=== PATIENT | male | born 1940 | race Caucasian/White ===

== ENCOUNTER → 2018-06-05 | Outpatient (CLI) | payer MEDICARE ==
--- NOTE | 2018-06-05 13:30 | FL ---
Modified barium swallow. HISTORY: Dysphagia. Modified barium swallow was performed with the department of speech pathology. The patient was prese nted with various consistencies of barium. There is no evidence for aspiration or penetration. Full report is to follow from the department of speech pathology. Impression: Normal study.
== END | disposition home or self-care (01) ==
LOC: RADFLMAIN 10:57
PROVIDERS: ATTEND Internal Medicine
DX: R13.12 Dysphagia, oropharyngeal phase (principal)
CPT/HCPCS: 74230

== ENCOUNTER → 2019-02-08 | Outpatient (CLI) | payer MEDICARE ==
--- NOTE | 2019-02-08 17:57 | ECHOF ---
Referral Reason:I35.0 Nonrheumatic aortic (valve) stenosis MEASUREMENTS -------- HEIGHT: 167.6 cm WEIGHT: 104.3 kg BP: 139/60 RVIDd: 3.1 cm (< 3.3) IVSd: 1.4 cm (0.6 - 1.1) LVIDd: 5.0 cm (3.9 - 5.3) LVPWd: 1.3 cm (0.6 - 1.1) IVSs: 1.9 cm LVIDs: 4.1 cm LVPWs: 1.6 cm LA Diam: 4.1 cm (2.7 - 3.8) LAESV Index (A-L): 22.54 ml/m Ao Diam: 4.1 cm (2.0 - 3.7) AV Cusp: 1.4 cm (1.5 - 2.6) MV EXCURSION: 11.453 mm (> 18.000) MV EF SLOPE: 17 mm/s (70 - 150) EPSS: 1.5 cm MV E Marshall: 0.55 m/s MV DecT: 377 ms MV A Marshall: 1.26 m/s MV E/A Ratio: 0.43 AV maxP.08 mmHg AV meanP.49 mmHg RAP: 5.00 mmHg RVSP: 33.71 mmHg FINDINGS -------- Sinus rhythm. This was a technically difficult study with suboptimal views. The left ventricular size is normal. There is moderate concentric left ventricular hypertrophy. O verall left ventricular systolic function is normal with, an EF between 55 - 60 %. The right ventricle is normal in size. Normal LA size by volume 22+/-6 ml/m2. The right atrial size is normal. There is mild to moderate aortic valve sclerosis. There is mild aortic regurgitation. There is mi ld aortic stenosis present. Peak/mean gradient across the Aortic Valve is 29.08mmHg / 16.49mmHg. The mitral valve is normal. Mild mitral regurgitation is present. Mild tricuspid regurgitation present. There is no evidence of pulmonary hypertension. The right v entricular systolic pressure, as measured by Doppler, is 33.71mmHg. The pulmonic valve was not well visualized. There is no pulmonic regurgitation present. The aortic root is dilated measuring 4.1cm. There is no pericardial effusion. CONCLUSIONS -------- 1. Sinus rhythm. 2. This was a technically difficult study with suboptimal views. 3. The left ventricular size is normal. 4. There is moderate concentric left ventricular hypertrophy. 5. Overall left ventricular systolic function is normal with, an EF between 55 - 60 %. 6. Normal LA size by volume 22+/-6 ml/m2. 7. There is mild to moderate aortic valve sclerosis. 8. There is mild aortic regurgitation. 9. There is mild aortic stenosis present. 10. Peak/mean gradient across the Aortic Valve is 29.08mmHg / 16.49mmHg. 11. The mitral valve is normal. 12. Mild mitral regurgitation is present. 13. Mild tricuspid regurgitation present. 14. There is no evidence of pulmonary hypertension. 15. The pulmonic valve was not well visualized. 16. The aortic root is dilated measuring 4.1cm. 17. There is no pericardial effusion. INSURANCE ADVISOR: Vinita Trujillo RDCS
== END | disposition home or self-care (01) ==
LOC: RADECHMAIN 13:07
PROVIDERS: ATTEND Internal Medicine
DX: I08.3 Combined rheumatic disorders of mitral, aortic and tricuspid valves (principal)
CPT/HCPCS: C8929; Q9950; 93306

== ENCOUNTER → 2019-02-19 | Outpatient (CLI) | payer MEDICARE ==
--- NOTE | 2019-02-19 15:59 | US ---
EXAMINATION TYPE: US venous doppler duplex LE RT DATE OF EXAM: 02/19/2019 3:44 PM COMPARISON: NONE CLINICAL HISTORY: M79.604, M79.661 PAIN IN RT LOWER LEG. Pt states right leg pain SIDE PERFORMED: Right TECHNIQUE: The lower extremity deep venous system is examined utilizing real time linear array sonog chrissie with graded compression, doppler sonography and color-flow sonography. VESSELS IMAGED: External Iliac Vein (EIV) Common Femoral Vein Deep Femoral Vein Greater Saphenous Vein * Femoral Vein Popliteal Vein Small Saphenous Vein * Proximal Calf Veins (* superficial vessels) Right Leg: Positive for DVT, Right EIV to proximal calf veins IMPRESSION: 1. Findings compatible extensive DVT right lower extremity. Report called to referring clinician.
== END ==
LOC: RADUSWWP 15:26
PROVIDERS: ATTEND Internal Medicine
DX: M79.604 Pain in right leg (principal); M79.661 Pain in right lower leg

== ENCOUNTER 2021-06-04 10:10 | Day surgery (SDC) | payer MEDICARE ==
[2021-06-01 15:03] VITALS: BMI 38.2
[~2021-06-04 10:10] MED LIST: ACETAMINOPHEN TAB 500 MG TAB PO PRN; DEXAMETHASONE SOD PHOSPHATE 4 MG/ML 1 ML VIAL IV ONE; HEPARIN SODIUM,PORCINE/PF 5,000 UNIT/0.5 ML SYRINGE SQ PRN; HYDROmorphone 0.5 MG/0.5 ML SYRINGE IVP PRN; LACTATED RINGERS 1,000 ML IV SCH; MIDAZOLAM 2 MG/2 ML VIAL IV PRN; ONDANSETRON 4 MG/2 ML VIAL IVP ONE; Pre Op ABX Message 1 EACH MISC MISCELLANE ONE
[2021-06-04] MEDS ORDERED: LIDOCAINE 1% (10MG/ML) FOR IV START INTRADERMA ONE (11:00)
[2021-06-04] MEDS ORDERED: KETAMINE 10 MG/ML 20 ML VIAL ONE (12:12)
[2021-06-04] MEDS ORDERED: PROPOFOL 10 MG/ML 20 ML VIAL IV ONE (12:12)
[2021-06-04] MEDS ORDERED: fentaNYL (PF) 50 MCG/ML 2 ML AMP ONE (12:12)
[2021-06-04] MEDS ORDERED: MIDAZOLAM 2 MG/2 ML VIAL ONE (12:12)
[2021-06-04] MEDS ORDERED: SODIUM CHLORIDE 0.9% 100 ML with ceFAZolin 2,000 MG IV ONE ×2 (12:33)
[2021-06-04] MEDS ORDERED: LIDOCAINE 2%-EPI 1:100,000 20 ML VIAL SQ ONE ×2 (12:33)
[2021-06-04] MEDS ORDERED: NALOXONE 0.4 MG/ML 1 ML VIAL IV PRN (12:58)
--- NOTE | 2021-06-04 13:01 | P.OP ---
Date of Procedure: 06/04/21 Procedure(s) Performed: PREOPERATIVE DIAGNOSIS: Left chest wall mass POSTOPERATIVE DIAGNOSIS: Left chest wall lipoma PROCEDURE: Excision left chest wall lipoma with layered closure SURGEON: aMynor EBL: 5 mL ANESTHESIA: Sedation plus local COMPLICATIONS: None OPERATIVE PROCEDURE: Patient place never table in the supine position. Patient sedated per anesthesia. Left lower chest wall prepped and draped sterilely. Palpable mass identified. Skin infiltrated with 2% lidocaine. Skin incision made horizontally. Subcutaneous tissues divided using electrocautery. Lipomatous mass excised with adjacent lipomatous masses well. Largest lipoma 6 x 4 cm. Other smaller lipomas measuring 2-3 cm also excised. These were sent to pathology. Subcutaneous tissues closed in layered fashion using interrupted 3-0 Vicryl sutures. Skin closed using a running 4-0 Monocryl suture. Skin glue applied. DISPOSITION: Stable to recovery room
[2021-06-04 13:09] VITALS: TEMP 96.8
[2021-06-04 14:10] VITALS: PULSE 59
[2021-06-04 14:23] VITALS: BP 148/81; RESP 14
== END 2021-06-04 14:42 | disposition home or self-care (01) ==
LOC: OR 10:10
PROVIDERS: ATTEND Surgery
DX: D17.1 Benign lipomatous neoplasm of skin and subcutaneous tissue of trunk (principal); Z86.73 Personal history of transient ischemic attack (TIA), and cerebral infarction without residual deficits; Z79.82 Long term (current) use of aspirin; Z86.718 Personal history of other venous thrombosis and embolism
CPT/HCPCS: 21552; 11406; 88304; J2250; J1100; J2405; J0690; J3010; J2704; J1644

== ENCOUNTER → 2022-02-01 | Outpatient (CLI) | payer MEDICARE ==
--- NOTE | 2022-02-01 15:05 | XR ---
EXAMINATION TYPE: XR lumbar spine 3V DATE OF EXAM: 02/01/2022 Comparison: None Clinical History: 81-year-old male M54.50 low back pain Findings: 5 lumbar type vertebral bodies. Mild/moderate multilevel degenerative disc disease. Atrophic facet arthropathy throughout the lumbar spine especially lower lumbar spine. Degenerative gr stacey 1 retrolisthesis L1-L2 and L2-L3. Trace grade 1 anterolisthesis L5-S1. Vertebral body heights are preserved. Prostatic calcifications throughout the infrarenal abdominal aorta and iliac arteries. Aneurysm infra renal abdominal aorta at 3.4 cm and ectatic common iliac arteries measuring up to 2.0 cm. Impression: 1. Moderate multilevel spondylotic change. More advanced facet arthropathy especially lower lumbar sp ine. Degenerative grade 1 spondylolisthesis L1-L2, L2-L3, and L5-S1. 2. No vertebral compression collapse. 3. Infrarenal AAA at 3.4 cm and mild aneurysm common iliac arteries up to 2.0 cm.
--- NOTE | 2022-02-01 15:08 | XR ---
EXAMINATION TYPE: AP view pelvis and 2 views each hip DATE OF EXAM: 02/01/2022 COMPARISON: NONE HISTORY: 81-year-old male M25.552 TECHNIQUE: A single AP view of the pelvis is obtained. Two views of the both hips are obtained. FINDINGS: Mild axial joint space narrowing at either hip. Tiny os acetabuli superolateral right hip measuring 6 mm. Probable degenerative labral ossification superolateral left hip. Pubic symphysis appears intact . Vascular calcifications in the inguinal regions. No acute fracture, subluxation, or dislocation. Bi lateral anterior and superior femoral head neck junction can deformities. IMPRESSION: 1. Mild degenerative change at either hip likely secondary to chronic CAM-type femoral acetabular imp ingement. Degenerative labral ossification suspected on the left and probably on the right as well. 2. No acute osseous abnormality seen.
== END | disposition home or self-care (01) ==
LOC: RADXRMAIN 10:35
PROVIDERS: ATTEND Internal Medicine
DX: M47.816 Spondylosis without myelopathy or radiculopathy, lumbar region (principal); M43.16 Spondylolisthesis, lumbar region; M16.0 Bilateral primary osteoarthritis of hip
CPT/HCPCS: 72100; 73521

== ENCOUNTER → 2022-05-26 | Outpatient (CLI) | payer MEDICARE ==
--- NOTE | 2022-05-26 08:37 | US ---
EXAMINATION TYPE: US duplex aorta DATE OF EXAM: 05/26/2022 COMPARISON: NONE CLINICAL HISTORY: I71.4 AAA. AAA EXAM MEASUREMENTS: Abdominal Aorta: Proximal: AP= 3.0cm Trans= 3.5cm Mid: AP= 2.2cm Trans=2.4cm Distal: AP= 2.3 Trans=2.6cm Bifurcation: BERNARD AP=1.3cm Trans=1.6cm ANNIE AP=1.4cm Trans=1.3cm Prox Aorta limited due to patient's body habitus and overlying bowel gas. IMPRESSION: No evidence for abdominal aortic aneurysm at this time.
== END | disposition home or self-care (01) ==
LOC: RADUSWWP 06:58
PROVIDERS: ATTEND Internal Medicine
DX: I71.4 Abdominal aortic aneurysm, without rupture (principal)
CPT/HCPCS: 93979

== ENCOUNTER → 2022-05-31 | Outpatient (CLI) | payer MEDICARE ==
--- NOTE | 2022-06-01 08:30 | CA ---
Transthoracic Echo Report Name: Petey Hobson Age: 81 Gender: M : 1940 Exam Date: 05/31/2022 13:54 Exam Location: [facility] Ht (in): 66 Wt (lb): 220 Ordering Physician: Danae Soriano MD Attending/Referring Phys: Rental Sales Associate Flores Garcia RDCS Procedure CPT: Indications: R01.1 cardiac murmur Cardiac Hx: Hx of aortic stenosis. Technical Quality: Fair Contrast 1: Total Dose (mL): Contrast 2: Total Dose (mL): MEASUREMENTS (Male / Female) Normal Values 2D ECHO LV Diastolic Diameter PLAX 4.1 cm 4.2 - 5.9 / 3.9 - 5.3 cm LV Systolic Diameter PLAX 2.9 cm IVS Diastolic Thickness 1.2 cm 0.6 - 1.0 / 0.6 - 0.9 cm LVPW Diastolic Thickness 1.4 cm 0.6 - 1.0 / 0.6 - 0.9 cm LV Relative Wall Thickness 0.6 LVOT Diameter 1.6 cm M-MODE Aortic Root Diameter MM 3.7 cm LA Systolic Diameter MM 4.0 cm LA Ao Ratio MM 1.1 MV E Point Septal Separation 0.5 cm AV Cusp Separation MM 0.8 cm DOPPLER AV Peak Velocity 279.3 cm/s AV Peak Gradient 31.2 mmHg AV Mean Velocity 192.9 cm/s AV Mean Gradient 17.0 mmHg AV Velocity Time Integral 62.3 cm AI Peak Velocity 187.7 cm/s AI Peak Gradient 14.1 mmHg AI Pressure Half Time 524.5 ms LVOT Peak Velocity 145.3 cm/s LVOT Peak Gradient 8.4 mmHg AV Area Cont Eq pk 1.1 cm??? MV Area PHT 3.5 cm??? MR Peak Velocity 115.4 cm/s MR Peak Gradient 5.3 mmHg Mitral E Point Velocity 48.1 cm/s Mitral A Point Velocity 129.7 cm/s Mitral E to A Ratio 0.4 MV Deceleration Time 214.2 ms TR Peak Velocity 193.3 cm/s TR Peak Gradient 15.0 mmHg Right Ventricular Systolic Press 18.7 mmHg FINDINGS Left Ventricle Mildly increased septal wall thickness. Left ventricular ejection fraction is estimated at 50-55 %. Left ventricular cavity size normal. Basal inferior is hypokinetic Right Ventricle The right ventricle is normal in size and function. Right Atrium The right atrium is normal in size. Left Atrium The left atrium is normal in size. Mitral Valve Structurally normal mitral valve without significant stenosis or prolapse. There is trace mitral regurgitation. Aortic Valve Mild aortic stenosis with a peak gradient of 31 mmHg and a mean gradient of 17 mmHg. . There is trace aortic regurgitation. Diffuse thickening of the aortic valve cusps with reduced excursion. Tricuspid Valve Structurally normal tricuspid valve without significant stenosis. Pulmonary artery systolic pressure is normal. Mild tricuspid regurgitation. Pulmonic Valve Structurally normal pulmonic valve without significant stenosis. There is no pulmonic regurgitation. Pericardium Normal pericardium without effusion. Aorta Normal aortic root dimension. CONCLUSIONS Normal left ventricular dimension and systolic function. Mild left ventricular hypertrophy Aortic sclerosis with mild aortic stenosis. Mean gradient of 17 mmHg. Mild aortic insufficiency. Previewed by: Dr. Omid Rodrigues MD (Electronically Signed) Final Date: 01 June 2022 08:28
== END | disposition home or self-care (01) ==
LOC: RADECHMAIN 13:50
PROVIDERS: ATTEND Internal Medicine
DX: R01.1 Cardiac murmur, unspecified (principal)
CPT/HCPCS: 93306

== ENCOUNTER → 2022-07-12 | Outpatient (CLI) | payer MEDICARE ==
--- NOTE | 2022-07-12 16:06 | P.SLEEP ---
History of Present Illness H&P Date: 07/12/22 This is a pleasant 81-year-old male patient was seen in the sleep center after 8 years of interruption. I have diagnosed this patient having severe obstructive sleep apnea. His sleep study was done in 2013 and back then the patient was found to have severe ANA M with an AHI of 91. He had many obstructive apneas and his sleep was very much fragmented and he has frequent nocturnal oxygen desaturations and a very high arousal index. Based on that, the patient was given a BiPAP which was adjusted at a pressure of 18/14 cm of water. The patient has been using his S9 BiPAP series over this past 8 years and recently his machine has been acting up and it's become loud and an ineffective. Based o n that, the patient came to me for further advice and he wanted to update his BiPAP machine. He is extremely compliant with his treatment and he continues to use the treatment without any interruption. He wears his BiPAP machine overnight. His been averaging around 8.9 hours of BiPAP use per night. His been using his machine more than 4 hours 100% of the time. He is using a Mirage fx nasal mask. Over this past 8 years, the patient has lost weight. He has lost approximately 16 pounds. No snoring while on BiPAP treatment. For the time being, the patient is going to bed at around 10 PM and he is waking up 7 AM in the morning. No snoring while on treatment. No morning hypersomnia or sleepiness. He does take naps during the day and he feels refreshed. He wakes up probably twice in the middle of night to urinate. No seizure activity. No altered mentation. No chest pain or shortness of breath. no anxiety. no depression. no head trauma. He is very committed to ongoing treatment with BiPAP. Review of Systems Constitutional: Reports weight loss Eyes: denies as per HPI, denies blurred vision, denies bulging eye, denies decreased vision, denies diplopia, denies discharge, denies dry eye, denies irritation, denies itching, denies pain, denies photophobia, denies loss of peripheral vision, denies loss of vision, denies tunnel vision/blind spots Ears: deny: decreased hearing, ear discharge, earache, tinnitus Ears, nose, mouth and throat: Reports as per HPI Breasts: absent: as per HPI, gynecomastia Cardiovascular: Reports as per HPI Respiratory: Reports sleep apnea, Reports snoring Gastrointestinal: Reports as per HPI Genitourinary: Reports as per HPI Musculoskeletal: Reports as per HPI Musculoskeletal: absent: ankle pain, ankle stiffness, ankle swelling, as per HPI, elbow pain, elbow stiffness, elbow swelling, foot pain, foot stiffness, foot swelling, hand pain, hand stiffness, hand swelling, hip pain, hip stiffness, hip swelling, knee pain, knee stiffness, knee swelling, shoulder pain, shoulder stiffness, shoulder swelling, wrist pain, wrist stiffness, wrist swelling Integumentary: Reports as per HPI Neurological: Reports as per HPI Psychiatric: Reports as per HPI Endocrine: Reports as per HPI Hematologic/Lymphatic: Reports as per HPI Allergic/Immunologic: Reports as per HPI Past Medical History Past Medical History: Deep Vein Thrombosis (DVT), Hyperlipidemia, Hypertension, Sleep Apnea/CPAP/BIPAP Additional Past Medical History / Comment(s): DVT 2 years was on Eliquis for 1 year. States had a stroke in 1994- some memory loss but no weakness, hypertension, hyperlipidemia, irritable bowel syndrome, chronic low back pain, abdominal aortic aneurysm, infrarenal measuring 3.4 cm, osteoarthritis, chronic stage IIIa kidney disease History of Any Multi-Drug Resistant Organisms: None Reported Past Surgical History: Appendectomy, Orthopedic Surgery Additional Past Surgical History / Comment(s): Colonoscopy, hemorrhoidectomy, rotator cuff surgery. cataract surgery. Past Anesthesia/Blood Transfusion Reactions: No Reported Reaction Smoking Status: Current every day smoker - Past Family History Mother Family Medical History: No Reported History Medications and Allergies Home Medications Medication Instructions Recorded Confirmed Type Aspirin [Adult Low Dose Aspirin EC] 81 mg PO DAILY 06/01/21 06/01/21 History Fenofibrate Nanocrystallized 145 mg PO DAILY 06/01/21 06/01/21 History [Fenofibrate] Magnesium 200 mg PO DAILY 06/01/21 06/01/21 History NIFEdipine [Procardia XL] 90 mg PO DAILY 06/01/21 06/01/21 History Potassium Chloride [Potassium 10 meq PO DAILY 06/01/21 06/01/21 History Chloride ER] Triamterene-Hctz 37.5-25Mg 1 cap PO DAILY 06/01/21 06/01/21 History [Dyazide 37.5-25 Capsule] Valsartan [Diovan] 160 mg PO DAILY 06/01/21 06/01/21 History Allergies Allergy/AdvReac Type Severity Reaction Status Date / Time No Known Allergies Allergy Verified 06/04/21 10:34 Physical Exam BP is 146/85, pulse is at 75, respirations of 16, temperature is 98.3 and weight is down to 224 and oxygen saturation is at 97% Neck circumference is 17 inches The patient appeared well nourished and normally developed. Vital signs as documented. Head exam is unremarkable. No scleral icterus or corneal arcus noted. Neck is without jugular venous distension, thyromegaly, or carotid bruits. Carotid upstrokes are brisk bilaterally. Lungs are clear to auscultation and percussion. Cardiac exam reveals the PMI to be normally sized and situated. Rhythm is regular. First and second heart sounds normal. No murmurs, rubs or gallops. Abdominal exam reveals normal bowel sounds, no masses, no organomegaly and no aortic enlargement. Extremities are nonedematous and both femoral and pedal pulses are normal.Examination of the skin revealed no evidence of significant rashes, suspicious appearing nevi or other concerning lesions.Neurologically, the patient is awake and alert and the patient does not have any focal neurological deficit. Cranial nerves are essentially intact. Assessment and Plan Plan: Severe obstructive sleep apnea with an AHI of 91, successfully treated with a BiPAP pressure of 18/14 cm of water. His machine is to be updated as the patient has been using the same machine for over 8 years and the treatment has become less effective and the machine has become noisy and delivery of the pressure from the machine has become consistent. As such, a newer machine is requested. Chronic hypersomnia, successful treated with a BiPAP, current [place] score is at 4 Obesity with interval weight loss, current weight is down to 224 pounds Hypertension Hyperlipidemia Remote history of DVT Remote history of CVA back in 1994 without any residual deficits Irritable bowel syndrome Small abdominal aortic aneurysm infrarenal, measuring 2.4 cm Chronic back pain Osteoarthritis Chronic stage IIIa kidney disease Plan We'll order a newer generation BiPAP for this patient, S mode, pressures of 18/14 cm of water with C-Flex of 3 and keep the same mask interface, Mirage fx. The prescription was sent to [facility]. If confirmation as needed, we'll do a home sleep study to establish diagnosis. I'm quite confident the patient has still severe symptomatically obstructive sleep apnea. Encourage weight loss Maintaining his sleep hygiene measures Continue treating comorbidities were his primary care physician We'll see him back in sleep center after obtaining a newer generation BiPAP units. Sleep Note - Sleep Note Sleep Note: Temperature: Pulse Rate: Respiratory Rate: Blood Pressure: SpO2: Height: Weight: BMI: Neck Circumference:
== END ==
LOC: SLEEP 15:38
PROVIDERS: ATTEND Internal Medicine Critical Care Medicine
DX: G47.33 Obstructive sleep apnea (adult) (pediatric) (principal); E66.9 Obesity, unspecified; Z99.89 Dependence on other enabling machines and devices; E78.5 Hyperlipidemia, unspecified; Z86.718 Personal history of other venous thrombosis and embolism; Z86.73 Personal history of transient ischemic attack (TIA), and cerebral infarction without residual deficits; K58.9 Irritable bowel syndrome, unspecified; M54.9 Dorsalgia, unspecified; G89.29 Other chronic pain; M19.90 Unspecified osteoarthritis, unspecified site; I12.9 Hypertensive chronic kidney disease with stage 1 through stage 4 chronic kidney disease, or unspecified chronic kidney disease; N18.31 Chronic kidney disease, stage 3a; I71.4 Abdominal aortic aneurysm, without rupture
CPT/HCPCS: 99211

== ENCOUNTER → 2023-07-06 | Outpatient (CLI) | payer MEDICARE ==
--- NOTE | 2023-07-06 11:08 | XR ---
EXAMINATION TYPE: XR foot complete LT DATE OF EXAM: 07/06/2023 11:02 AM INDICATION: Patient age:Male; 82 years old; Reason for study: [id number] LEFT FOOT PAIN; [facility]. COMPARISON: None TECHNIQUE: The left foot was examined in the AP, oblique, and lateral projections. FINDINGS: No evidence of any acute osseous pathology. No osseous erosions. Soft tissue swelling of the dorsal aspect of the midfoot. Joints are preserved. Small plantar calcaneal enthesophyte. IMPRESSION: 1. No evidence of acute fracture. 2. Soft tissue swelling of the dorsal aspect of the midfoot.
== END | disposition home or self-care (01) ==
LOC: RADXRMAIN 10:48
PROVIDERS: ATTEND Internal Medicine
DX: M79.89 Other specified soft tissue disorders (principal)

== ENCOUNTER → 2023-09-13 | Outpatient (CLI) | payer MEDICARE ==
--- NOTE | 2023-09-13 09:39 | XR ---
EXAMINATION TYPE: XR finger LT DATE OF EXAM: 09/13/2023 CLINICAL HISTORY: pain TECHNIQUE: 3 views of the first left digit are submitted. COMPARISON: None FINDINGS: No displaced fracture is seen with certainty. Mild degenerative narrowing interphalangeal j oint of the left first digit. Subchondral cystic change within the head of the proximal phalanx. No b natalio destructive process or erosive change. No soft tissue calcification seen. Correlate for soft tiss ue injury. IMPRESSION: No acute displaced fracture or dislocation.
[2023-09-13 17:32] LABS: Basophils # (A) 0.05 X 10*3/uL (0.00-0.10); Basophils % (A) 0.5 %; Eosinophils # (A) 0.27 X 10*3/uL (0.04-0.35); Eosinophils % (A) 2.9 %; HCT 44.1 % (39.6-50.0); HGB 14.7 d/dL (13.0-17.0); Lymphocytes # (A) 2.13 X 10*3/uL (0.90-5.00); Lymphocytes % (A) 22.7 %; MCH 32.2 pg (27.0-32.0); MCHC 33.3 d/dL (32.0-37.0); MCV 96.7 FL (80.0-97.0); Mean Platelet Volume 9.1 FL (9.5-12.2); Monocytes # (A) 0.65 X 10*3/uL (0.20-1.00); Monocytes % (A) 6.9 %; NRBC Per 100 WBC 0 X 10*3/uL (0.00-0.01); Neutrophils # (A) 6.23 X 10*3/uL (1.80-7.70); Neutrophils % (A) 66.5 %; Platelet Count 234 X 10*3/uL (140-440); RBC 4.56 X 10*6/uL (4.40-5.60); RDW 13.9 % (11.5-14.5); WBC 9.38 X 10*3/uL (4.50-10.00)
[2023-09-13 17:46] LABS: ALT 19 U/L (10-49); AST 23 U/L (14-35); Albumin 3.9 d/dL (3.8-4.9); Albumin/Globulin Ratio 1.44 Ratio (1.60-3.17); Alkaline Phosphatase 103 U/L (41-126); BUN/Creat Ratio 25.91 Ratio (12.00-20.00); Blood Urea Nitrogen 28.5 mg/dL (9.0-27.0); Calcium 10.1 mg/dL (8.7-10.3); Carbon Dioxide 24.2 mmol/L (21.6-31.8); Chloride 108 mmol/L (96-109); Chol/HDL Ratio 3.52 Ratio; Globulin 2.7 d/dL (1.6-3.3); Glucose 132 mg/dL (70-110); LDL Cholesterol,Calculated 37.2 mg/dL (0.0-131.0); Potassium 4.1 mmol/L (3.5-5.5); Sodium 142 mmol/L (135-145); Total Bilirubin 0.5 mg/dL (0.3-1.2); Total Protein 6.6 d/dL (6.2-8.2); Uric Acid 8.7 mg/dL (3.7-8.7)
== END | disposition home or self-care (01) ==
LOC: LABWHC1 08:57
PROVIDERS: ATTEND Internal Medicine
DX: E11.22 Type 2 diabetes mellitus with diabetic chronic kidney disease (principal); M10.9 Gout, unspecified; N18.9 Chronic kidney disease, unspecified
CPT/HCPCS: 36415; 80053; 80061; 82043; 82570; 83036; 83970; 84443; 84550; 85025

== ENCOUNTER → 2024-04-02 | Outpatient (CLI) | payer MEDICARE ==
[2024-04-02 15:12] LABS: BUN/Creat Ratio 22.18 Ratio (12.00-20.00); Blood Urea Nitrogen 24.4 mg/dL (9.0-27.0); Carbon Dioxide 24.5 mmol/L (21.6-31.8); Chloride 108 mmol/L (96-109); Chol/HDL Ratio 2.44 Ratio; Glucose 127 mg/dL (70-110); LDL Cholesterol,Calculated 35.8 mg/dL (0.0-131.0); Magnesium 2.2 mg/dL (1.5-2.4); Potassium 4.2 mmol/L (3.5-5.5); Sodium 143 mmol/L (135-145); Uric Acid 7.5 mg/dL (3.7-8.7)
[2024-04-02 15:13] LABS: ALT 28 U/L (10-49); AST 26 U/L (14-35); Albumin/Globulin Ratio 1.54 Ratio (1.60-3.17); Alkaline Phosphatase 93 U/L (41-126); Calcium 9.9 mg/dL (8.7-10.3); Globulin 2.6 g/dL (1.6-3.3); Total Bilirubin 0.6 mg/dL (0.3-1.2); Total Protein 6.6 g/dL (6.2-8.2)
[2024-04-02 15:52] LABS: Basophils # (A) 0.05 X 10*3/uL (0.00-0.10); Basophils % (A) 0.6 %; Eosinophils # (A) 0.17 X 10*3/uL (0.04-0.35); HGB 16.4 g/dL (13.0-17.0); Lymphocytes % (A) 24.9 %; MCH 31.4 pg (27.0-32.0); MCHC 32.8 g/dL (32.0-37.0); MCV 95.8 FL (80.0-97.0); Mean Platelet Volume 8.9 FL (9.5-12.2); Monocytes # (A) 0.63 X 10*3/uL (0.20-1.00); Monocytes % (A) 7.5 %; NRBC Per 100 WBC 0 X 10*3/uL (0.00-0.01); Neutrophils # (A) 5.45 X 10*3/uL (1.80-7.70); Neutrophils % (A) 64.5 %; Platelet Count 194 X 10*3/uL (140-440); RBC 5.22 X 10*6/uL (4.40-5.60); WBC 8.44 X 10*3/uL (4.50-10.00)
== END | disposition home or self-care (01) ==
LOC: LABWHC1 08:19
PROVIDERS: ATTEND Internal Medicine
DX: I12.9 Hypertensive chronic kidney disease with stage 1 through stage 4 chronic kidney disease, or unspecified chronic kidney disease (principal); E11.22 Type 2 diabetes mellitus with diabetic chronic kidney disease; N18.9 Chronic kidney disease, unspecified; M10.9 Gout, unspecified
CPT/HCPCS: 36415; 80053; 80061; 83735; 83970; 84443; 84550; 85025

== ENCOUNTER → 2024-06-27 | Outpatient (CLI) | payer MEDICARE ==
[2024-06-27 16:42] LABS: ALT 23 U/L (10-49); AST 23 U/L (14-35); Albumin 4.1 g/dL (3.8-4.9); Albumin/Globulin Ratio 1.58 Ratio (1.60-3.17); Alkaline Phosphatase 91 U/L (41-126); BUN/Creat Ratio 28.27 Ratio (12.00-20.00); Blood Urea Nitrogen 31.1 mg/dL (9.0-27.0); Calcium 10.2 mg/dL (8.7-10.3); Carbon Dioxide 22.8 mmol/L (21.6-31.8); Chloride 106 mmol/L (96-109); Chol/HDL Ratio 2.13 Ratio; Globulin 2.6 g/dL (1.6-3.3); Glucose 113 mg/dL (70-110); LDL Cholesterol,Calculated 20.3 mg/dL (0.0-131.0); Potassium 4.3 mmol/L (3.5-5.5); Sodium 141 mmol/L (135-145); Total Bilirubin 0.7 mg/dL (0.3-1.2); Total Protein 6.7 g/dL (6.2-8.2)
[2024-06-27 17:47] LABS: HCT 49.8 % (39.6-50.0); HGB 16.3 g/dL (13.0-17.0); MCH 32.1 pg (27.0-32.0); MCHC 32.7 g/dL (32.0-37.0); NRBC Per 100 WBC 0 X 10*3/uL (0.00-0.01); Platelet Count 187 X 10*3/uL (140-440); RBC 5.08 X 10*6/uL (4.40-5.60); RDW 14.5 % (11.5-14.5); WBC 9.17 X 10*3/uL (4.50-10.00)
== END | disposition home or self-care (01) ==
LOC: LABWHC1 08:11
PROVIDERS: ATTEND Internal Medicine Clinical Cardiac Electrophysiology
DX: E11.22 Type 2 diabetes mellitus with diabetic chronic kidney disease (principal); I12.9 Hypertensive chronic kidney disease with stage 1 through stage 4 chronic kidney disease, or unspecified chronic kidney disease; N18.9 Chronic kidney disease, unspecified; E78.5 Hyperlipidemia, unspecified
CPT/HCPCS: 36415; 80053; 80061; 83036; 84443; 85027

== ENCOUNTER → 2024-08-01 | Outpatient (CLI) | payer MEDICARE ==
--- NOTE | 2024-08-01 16:44 | XR ---
EXAMINATION TYPE: XR shoulder complete 3 views RT DATE OF EXAM: 08/01/2024 Comparison: None Clinical History: 83-year-old male M25.511 RT PAIN SHOULDER Findings: AC joint appears congruent and intact. There is a suture anchor related to prior rotator cuff repair. No acute fracture, subluxation, dislocation seen. Patchy interstitial change throughout the right selma ng. Impression: 1. Suture anchor at the humeral head relating to prior rotator cuff repair. No acute osseous abnormal ity seen. 2. Interstitial densities in the right lung. Correlate for any active symptoms of pulmonary vascular congestion or pneumonitis.
== END | disposition home or self-care (01) ==
LOC: RADXRMAIN 14:06
PROVIDERS: ATTEND Internal Medicine
DX: M25.511 Pain in right shoulder

== ENCOUNTER → 2024-09-09 | Outpatient (CLI) | payer MEDICARE ==
--- NOTE | 2024-09-09 17:05 | CT ---
INDICATION: Patient age:Male; 83 years old; Reason for study: J84.9 INTERSTITIAL PULMONARY DISEASE, UNSPECIFIED; [facility]. COMPARISON: CT chest 02/02/2023, chest radiograph 09/03/2024 TECHNIQUE: Multiple thin axial images were obtained through the chest at selected intervals. Prone and supine in spiratory along with supine expiratory images were submitted for review. Please note that due to inte rval acquisition images as defined by high-resolution CT protocol the entire lung parenchyma is not e valuated, therefore small nodular densities may not be visualized. Evaluation of vascular structures , viscera and lymphatics is limited due to lack of intravenous contrast administration. One or more C T dose reduction strategies were utilized during this examination. Total DLP 1520.50 mGycm. FINDINGS: LUNGS: There is no evidence of interstitial thickening, significant groundglass opacity, honeycombing or architectural distortion in the lungs. Similar scattered peripheral reticulations and upper lobe predominant thinwall pulmonary cysts. No acute area of infiltrative or consolidative change. Stable r ight minor fissure or fissural lymph node stable right lower lobe 6 mm pulmonary nodule (series 4, im age 89). LARGE AIRWAYS: Diffuse cylindrical bronchiectasis redemonstrated. Central airways are patent. No dyn amic airway collapse on expiratory imaging. PLEURA: No pleural effusion or thickening. HEART AND PERICARDIUM: The heart is mildly enlarged. There is no pericardial effusion. Moderate coron hieu artery calcifications present. Thickening and calcification of aortic valve present. MEDIASTINUM AND IRMA: No mediastinal or hilar lymphadenopathy or soft tissue mass. VESSELS: The thoracic aorta is normal in course and caliber. CHEST WALL AND DIAPHRAGM: Normal. LOWER NECK: Normal. UPPER ABDOMEN: Unremarkable. MUSCULOSKELETAL: No acute fracture. Mild to moderate degenerative changes are present in the thoraci c spine. IMPRESSION: Overall stable examination of nonspecific interstitial lung disease. No evidence of honeycombing. [facility], , 09/09/2024 5:03 PM
== END | disposition home or self-care (01) ==
LOC: RADCTMAIN 15:33
PROVIDERS: ATTEND Internal Medicine
DX: J84.9 Interstitial pulmonary disease, unspecified
CPT/HCPCS: 71250

== ENCOUNTER 2024-09-20 12:36 | Day surgery (SDC) | payer MEDICARE ==
[2024-09-19 10:13] VITALS: BMI 33.9
[~2024-09-20 12:36] MED LIST changes: -ACETAMINOPHEN TAB 500 MG TAB PO PRN; -DEXAMETHASONE SOD PHOSPHATE 4 MG/ML 1 ML VIAL IV ONE; -HEPARIN SODIUM,PORCINE/PF 5,000 UNIT/0.5 ML SYRINGE SQ PRN; -HYDROmorphone 0.5 MG/0.5 ML SYRINGE IVP PRN; -LACTATED RINGERS 1,000 ML IV SCH; +LIDOCAINE 1% (10MG/ML) FOR IV START INTRADERMA PRN; -MIDAZOLAM 2 MG/2 ML VIAL IV PRN; -ONDANSETRON 4 MG/2 ML VIAL IVP ONE; -Pre Op ABX Message 1 EACH MISC MISCELLANE ONE
[2024-09-20] MEDS: IV FLUID CONTINUATION 1,000 ML IV ONE (12:56)
[2024-09-20 13:03] VITALS: TEMP 97.1
[2024-09-20 13:21] LABS: Glucose,Whole Blood 122 mg/dL (70-110)
[2024-09-20] MEDS: LACTATED RINGERS 1,000 ML IV SCH (13:23)
[2024-09-20] MEDS ORDERED: LIDOCAINE 1% INJ 10MG/ML (20 ML MDV) ONE (14:37)
[2024-09-20] MEDS ORDERED: PROPOFOL 10 MG/ML 20 ML VIAL IV ONE (14:37)
--- NOTE | 2024-09-20 14:52 | P.PCN ---
Date of Procedure: 09/20/24 Procedure(s) Performed: BRIEF HISTORY: Patient is a 83-year-old, pleasant, white male was given up endoscopies upon evaluation of chronic cough and hoarseness for the last few months duration. He denies any heartburn, has occasional dysphagia.. PROCEDURE PERFORMED: Esophagogastroduodenoscopy with biopsy. PREOPERATIVE DIAGNOSIS: Chronic cough/hoarseness and occasional dysphagia to solids. IV sedation per anesthesia. PROCEDURE: After informed consent was obtained, the patient was brought into the endoscopy unit. IV sedation was administered by Anesthesia under continuous monitoring. Initially the Olympus GIF-140 video endoscope was inserted into the mouth. Esophagus intubated without any difficulty. It was gradually advanced into the stomach and duodenum and carefully examined. The bulb and the second part of the duodenum appeared normal. The scope at this time was withdrawn to the stomach, adequately insufflated with air, and upon careful examination, mucosa of the antrum gastritis and biopsies were done from this area. Mucosa of the, body, cardia and the fundus appeared normal. The scope was then withdrawn into the esophagus. Small hiatal hernia. The GE junction was located at 39 cm from the incisors. There were 2 superficial erosions in the distal esophagus as well as some erythema of the GE junction consistent with LA grade B reflux esophagitis. The rest of the esophagus appeared normal. The patient tolerated the procedure well. IMPRESSION: 1. Small hiatal hernia and erythema as well as 2 superficial erosions in the distal esophagus consistent with LA grade B reflux esophagitis. 2. Mild antral gastritis. RECOMMENDATIONS: The findings of this examination were discussed with the patient as well as his family. With the biopsy results. He was advised to follow-up with the biopsy results. Will give him a trial of omeprazole 20 mg half hour before dinnertime and follow antireflux measures..
[2024-09-20 15:47] VITALS: BP 124/78; PULSE 66; RESP 16
== END 2024-09-20 15:49 | disposition home or self-care (01) ==
LOC: ORWHC2ENDO 12:36
PROVIDERS: ATTEND Internal Medicine Gastroenterology
DX: K29.50 Unspecified chronic gastritis without bleeding (principal); K20.90 Esophagitis, unspecified without bleeding; K44.9 Diaphragmatic hernia without obstruction or gangrene; I10 Essential (primary) hypertension; E78.5 Hyperlipidemia, unspecified; G47.33 Obstructive sleep apnea (adult) (pediatric); K58.9 Irritable bowel syndrome, unspecified; I71.40 Abdominal aortic aneurysm, without rupture, unspecified; F17.210 Nicotine dependence, cigarettes, uncomplicated; Z86.73 Personal history of transient ischemic attack (TIA), and cerebral infarction without residual deficits; Z79.899 Other long term (current) drug therapy
CPT/HCPCS: 88305; 43239; J2003; J2704

== ENCOUNTER → 2024-12-06 | Outpatient (CLI) | payer MEDICARE ==
[2024-12-06 15:27] LABS: % Iron Saturation 33.08 (15.00-50.00); ALT 19 U/L (10-49); AST 20 U/L (14-35); Albumin 3.9 g/dL (3.8-4.9); Albumin/Globulin Ratio 1.26 Ratio (1.60-3.17); Alkaline Phosphatase 104 U/L (41-126); BUN/Creat Ratio 28.09 Ratio (12.00-20.00); Blood Urea Nitrogen 30.9 mg/dL (9.0-27.0); Carbon Dioxide 24.4 mmol/L (21.6-31.8); Chloride 105 mmol/L (96-109); Chol/HDL Ratio 2.25 Ratio; Globulin 3.1 g/dL (1.6-3.3); Glucose 118 mg/dL (70-110); Iron 86 UG/DL (65-175); LDL Cholesterol,Calculated 27.9 mg/dL (0.0-131.0); Magnesium 2.1 mg/dL (1.5-2.4); Potassium 4.5 mmol/L (3.5-5.5); Sodium 141 mmol/L (135-145); Total Bilirubin 0.5 mg/dL (0.3-1.2); Total Iron Binding Capacity 260 UG/DL (228-460); Uric Acid 7.5 mg/dL (3.7-8.7)
[2024-12-06 21:47] LABS: Basophils # (A) 0.06 X 10*3/uL (0.00-0.10); Basophils % (A) 0.6 %; Eosinophils # (A) 0.16 X 10*3/uL (0.04-0.35); Eosinophils % (A) 1.6 %; HCT 49.3 % (39.6-50.0); HGB 16.4 g/dL (13.0-17.0); Lymphocytes # (A) 2.03 X 10*3/uL (0.90-5.00); Lymphocytes % (A) 20.9 %; MCH 32.5 pg (27.0-32.0); MCHC 33.3 g/dL (32.0-37.0); MCV 97.6 FL (80.0-97.0); Mean Platelet Volume 9.5 FL (9.5-12.2); Monocytes # (A) 0.75 X 10*3/uL (0.20-1.00); Monocytes % (A) 7.7 %; NRBC Per 100 WBC 0 X 10*3/uL (0.00-0.01); Neutrophils # (A) 6.65 X 10*3/uL (1.80-7.70); Neutrophils % (A) 68.6 %; Platelet Count 215 X 10*3/uL (140-440); RBC 5.05 X 10*6/uL (4.40-5.60); RDW 14.5 % (11.5-14.5); WBC 9.71 X 10*3/uL (4.50-10.00)
== END | disposition home or self-care (01) ==
LOC: LABWHC1 09:30
PROVIDERS: ATTEND Internal Medicine
DX: E78.5 Hyperlipidemia, unspecified (principal); E11.22 Type 2 diabetes mellitus with diabetic chronic kidney disease
CPT/HCPCS: 36415; 80053; 80061; 82728; 83540; 83550; 83735; 83970; 84443; 84550; 85025

== ENCOUNTER → 2024-12-12 | Outpatient (CLI) | payer MEDICARE ==
[2024-12-12 12:42] LABS: Ionized Calcium 5.2 mg/dL (4.5-5.3)
[2024-12-12 12:45] LABS: African American GFR (CKD) 87 (>60 ml/min/1.73 sqM); Anion Gap 10 mmol/L; Blood Urea Nitrogen 24 mg/dL (9-20); Calcium 9.9 mg/dL (8.4-10.2); Carbon Dioxide 24 mmol/L (22-30); Chloride 108 mmol/L (98-107); Glucose 144 mg/dL (74-99); Non-African American GFR(CKD) 75 (>60 ml/min/1.73 sqM); Potassium 4.3 mmol/L (3.5-5.1); Sodium 142 mmol/L (137-145)
--- NOTE | 2024-12-12 12:53 | US ---
EXAMINATION TYPE: US carotid duplex BILAT DATE OF EXAM: 12/12/2024 COMPARISON: NONE CLINICAL INDICATION: Male, 84 years old with history of R09.89 OTH SYMPTOMS AND SIGNS INVOLVING THE C IRC A; History of stroke >20 years ago. Hx elevated right ECA velocity. Additional History: .... TECHNIQUE: Grayscale, color Doppler and spectral Doppler evaluation of the bilateral carotid systems and vertebral arteries. Indirect Doppler criteria was utilized. FINDINGS: EXAM MEASUREMENTS: RIGHT: Peak Systolic Velocity (PSV) cm/sec ----- Right CCA: 62.5 ----- Right ICA: 73.5 ----- Right ECA: 209.8 ICA/CCA ratio: 1.2 RIGHT: End Diastole cm/sec ----- Right CCA: 11.9 ----- Right ICA: 14.2 ----- Right ECA: 25.5 LEFT: Peak Systolic Velocity (PSV) cm/sec ----- Left CCA: 63.1 ----- Left ICA: 54.7 ----- Left ECA: 63.6 ICA/CCA ratio: 0.9 LEFT: End Diastole cm/sec ----- Left CCA: 9.7 ----- Left ICA: 8.5 ----- Left ECA: 0.0 VERTEBRALS (direction of flow): Right Vertebral: Antegrade Left Vertebral: Unable to visualize Rhythm: Normal FIRER KILN NOTES: Plaque in bilateral bulbs. Elevated right ECA velocity Color Doppler imaging shows patency with blood flow throughout the carotid artery. Spectral waveforms are within normal limits. IMPRESSION: Right: No hemodynamically significant stenosis. Left: No hemodynamically significant stenosis. Criteria for Assigning % of Stenosis / Diameter reduction (Estimation based on the indirect measurements of the internal carotid artery velocities (ICA PSV). 1. Normal (no stenosis)=ICA PSV < 125 cm/s: ratio < 2.0: ICA EDV<40 cm/s. 2. Less than 50% stenosis=ICA PSV < 125 cm/s: ratio < 2.0: ICA EDV<40 cm/s. 3. 50 to 69% stenosis=ICA PSV of 125 to 230 cm/s: ration 2.0 ? 4.0: ICA EDV 40-100 cm/s. 4. Greater than 70% stenosis to near occlusion= ICA PSV > 230 cm/s: ratio > 4.0: ICA EDV > 100 cm/s. 5. Near occlusion= ICA PSV velocities may be low or undetectable: variable ratio and ICA EDV. 6. Total occlusion=unable to detect flow. [facility], , 12/12/2024 12:51 PM
== END | disposition home or self-care (01) ==
LOC: RADUSWWP 11:32
PROVIDERS: ATTEND Internal Medicine
DX: R09.89 Other specified symptoms and signs involving the circulatory and respiratory systems (principal); E21.3 Hyperparathyroidism, unspecified
CPT/HCPCS: 80048; 82330; 93880